=== PATIENT | male | born 1990 | race Caucasian/White ===

== ENCOUNTER 2022-08-10 10:09 | Emergency (ER) | payer MEDICARE, MEDICAID ==
[2022-08-10] MEDS ORDERED: Lidocaine 1% PF 5 ML VIAL SQ SCH (10:30)
[2022-08-10] MEDS ORDERED: Bacitracin 1 PK ONE (11:27)
[2022-08-10] MEDS ORDERED: Boostrix 0.5 ML (Tdap) VIAL (>/=7 yrs of age) ONE (11:27)
== END 2022-08-10 11:56 | disposition home or self-care (01) ==
LOC: CSHERS 10:09
DX: S01.81XA Laceration without foreign body of other part of head, initial encounter (principal); E03.9 Hypothyroidism, unspecified; I10 Essential (primary) hypertension; F17.210 Nicotine dependence, cigarettes, uncomplicated; Z23 Encounter for immunization; Y08.89XA Assault by other specified means, initial encounter
CPT/HCPCS: 12002; 90471; 90715

== ENCOUNTER 2022-08-16 20:08 | Emergency (ER) | payer MEDICARE, MEDICAID | END 2022-08-16 20:48 | disposition home or self-care (01) | LOC: CSHERS 20:08 | DX: S01.81XD Laceration without foreign body of other part of head, subsequent encounter (principal); L74.0 Miliaria rubra; M25.572 Pain in left ankle and joints of left foot; E03.9 Hypothyroidism, unspecified; I10 Essential (primary) hypertension; F17.210 Nicotine dependence, cigarettes, uncomplicated; W18.30XD Fall on same level, unspecified, subsequent encounter | CPT/HCPCS: 99283 ==

== ENCOUNTER 2023-04-24 18:38 | Emergency (ER) | payer MEDICARE, MEDICAID ==
[2023-04-24 20:20] LABS: ALT (SGPT) 18 U/L (8-55); AST (SGOT) 24 U/L (5-34); Albumin 3.4 g/dL (3.5-5.0); Alkaline Phosphatase 61 U/L (40-110); Anion Gap 12 mmol/L (10-20); BUN (Urea Nitrogen) 10 mg/dL (8.9-20.6); Bilirubin, Total 0.2 mg/dL (0.2-1.2); Calc. Creatinine Clearance 0 mL/min (70-130); Calcium 8.4 mg/dL (7.8-10.44); Carbon Dioxide 25 mmol/L (22-29); Chloride 107 mmol/L (98-107); Estimated GFR 120; Globulin 2.3 g/dL (2.4-3.5); Glucose 141 mg/dL (70-105); Magnesium 1.7 mg/dL (1.6-2.6); Protein, Total 5.7 g/dL (6.0-8.3); Sodium 140 mmol/L (136-145)
[2023-04-24 20:31] LABS: #Basophils 0.1 10x3/uL (0.0-0.2); #Eosinphils 0.5 10x3/uL (0.0-0.5); #Monocytes 0.8 10x3/uL (0.0-1.1); #Neutrophils 5.7 10x3/uL (1.5-8.4); %Eosinophils 4.5 % (0.0-6.0); %Lymphocytes 35.1 % (18.0-47.0); %Monocytes 7.1 % (0.0-10.0); Hematocrit 37.6 % (38.8-50.0); Hemoglobin 12.7 g/dL (13.5-17.5); Mean Corpuscular HGB CONC 33.8 g/dL (32.0-36.0); Mean Corpuscular Hemoglobin 31.2 pg (27.0-33.0); Mean Corpuscular Volume 92.4 fl (81.2-95.1); Mean Platelet Volume 8.8 fl (7.4-10.4); Platelet Count 323 10x3/uL (150-450); RBC Distribution Width 13.2 % (11.5-14.5); Red Blood Cell (RBC) Count 4.07 10x6/uL (4.32-5.72); White Blood Cell (WBC) Count 10.9 10x3/uL (3.5-10.5)
== END 2023-04-24 20:56 | disposition home or self-care (01) ==
LOC: CSHERS 18:38
DX: I89.0 Lymphedema, not elsewhere classified (principal); I10 Essential (primary) hypertension; F17.210 Nicotine dependence, cigarettes, uncomplicated
CPT/HCPCS: 80053; 83735; 85025; 85379; 99283